=== PATIENT | female | born 1970 | race Caucasian/White ===

== ENCOUNTER 2022-03-08 17:30 | Emergency (ER) | payer OTHER ==
[2022-03-08 17:41] VITALS: BP 120/78; PULSE 62; TEMP 97.8; BMI 22.8
[2022-03-08] MEDS ORDERED: LIDOCAINE HCL 5% TOP OINTMENT 50 GM TUBE TP ONE (18:11)
[2022-03-08] MEDS ORDERED: IBUPROFEN 400 MG TABLET (FP) PO ONE ×2 (18:11→18:15)
[2022-03-08] MEDS ORDERED: ACETAMINOPHEN 325 MG TABLET (FP) PO ONE (18:12)
[2022-03-08] MEDS ORDERED: LIDOCAINE 5% TOPICAL PATCH TP ONE (18:14)
[2022-03-08] MEDS ORDERED: ACETAMINOPHEN 325 MG TABLET (FP) ONE (18:15)
[2022-03-08] MEDS ORDERED: LIDOCAINE 5% TOPICAL PATCH ONE (18:15)
[2022-03-08] MEDS ORDERED: LIDOCAINE PATCH REMOVAL MC SCH (22:00)
== END 2022-03-08 19:20 | disposition home or self-care (01) ==
LOC: FER 17:30
DX: M54.50 Low back pain, unspecified (principal); W10.9XXA Fall (on) (from) unspecified stairs and steps, initial encounter
CPT/HCPCS: 99283-25